=== PATIENT | female | born 1975 ===

== ENCOUNTER 2017-04-26 09:38 | Day surgery (SDC) | payer OTHER ==
[2017-04-26] VITALS (12 sets, daily range): BP systolic 98–113; BP diastolic 56–76
[~2017-04-26] VITALS: Ht 157.5 cm; Wt 81.6 kg
[~2017-04-26 09:38] MED LIST: ceFAZolin sod 1 GM in NS 55 ML IVPB ONE
[2017-04-26] MEDS ORDERED: NKM (10:40)
[2017-04-26] MEDS ORDERED: LR 1000ml 1,000 ML IVLG SCH (11:26)
--- NOTE | 2017-04-26 11:29 | Anethesia Preoperative Eval ---
Anesthesia Pre-op PMH/ROS General Date of Evaluation: Apr 26, 2017 Time of Evaluation: 12:01 Anesthesiologist: Cassie ASA Score: ASA 2 Mallampati Score Class I : Soft palate, uvula, fauces, pillars visible Class II: Soft palate, uvula, fauces visible Class III: Soft palate, base of uvula visible Class IV: Only hard plate visible Mallampati Classification: Class II Surgeon: Barney Diagnosis: Hypertrophic Turbinates Surgical Procedure: Septoplasty SMR Turbinates Anesthesia History: none Family History: no anesthesia problems Allergies: Coded Allergies: ERYTHROMYCIN BASE (Verified Allergy, Severe, swelling, 04/26/17) LATEX (Verified Allergy, Severe, Rash, 04/26/17) Medications: see eMAR Past Medical History Other: obesity - BMI 34 PSxH Narrative: LEEP, IUD Anesthesia Pre-op Phys. Exam Physician Exam Last Vital Signs Date Time Temp Pulse Resp B/P (MAP) Pulse Ox O2 Delivery O2 Flow Rate FiO2 04/26/17 10:25 97.4 56 18 110/58 100 Room Air 97.4 Constitutional: NAD Neurologic: CN 2-12 intact Cardiovascular: RRR Respiratory: CTA Gastrointestinal: S/NT/ND Airway Exam Mallampati Score: Class II MO: full ROM: limited Teeth: intact Anesthesia Pre-op A/P Labs Urine Test Test 04/26/17 09:50 Urine HCG, Qualitative Negative (NEGATIVE) Risk Assessment & Plan Assessment: ASA 2 Plan: GA, BIS, GlideScope Go Status Change Before Surgery: No Pre-Antibiotics Dru Gram Ancef IV Given Within 1 Hr of Incision: Yes Time Given: 12:16 Cr Matthews MD Apr 26, 2017 11:29
[2017-04-26] MEDS ORDERED: Hydromorphone 0.5mg/0.5ml inj IVP PRN (11:30)
[2017-04-26] MEDS ORDERED: Norco 5mg/325mg tab ORAL PRN (11:30)
[2017-04-26] MEDS ORDERED: fentaNYL 100 mcg/2 mL IV PRN (11:30)
[2017-04-26] MEDS ORDERED: LORazepam Inj 2mg/ml 1ml IV PRN (11:30)
[2017-04-26] MEDS ORDERED: HYDROcodone/Acetamin 7.5/325 tab ORAL PRN (11:30)
[2017-04-26] MEDS ORDERED: Bacitracin Oint 15gm Tube TOPIC ONE (11:30)
[2017-04-26] MEDS ORDERED: Ketorolac 30mg Inj IV PRN ×2 (11:30)
[2017-04-26] MEDS ORDERED: Cocaine HCl 4% 4ml vial TOPIC ONE (11:30)
[2017-04-26] MEDS ORDERED: DiphenhydrAMINE 50mg/ml Inj IVP PRN (11:30)
[2017-04-26] MEDS ORDERED: Kenalog-40 1ml Vial ONE (11:30)
[2017-04-26] MEDS ORDERED: Betadine 10% Oint 15gm TOPIC ONE (11:30)
[2017-04-26] MEDS ORDERED: Midazolam 2mg/2ml Inj IVP PRN (11:30)
[2017-04-26] MEDS ORDERED: Atropine Inj 1mg/10ml Syr IV PRN (11:30)
[2017-04-26] MEDS ORDERED: Labetalol 5mg/ml 20ml vial IV PRN (11:30)
[2017-04-26] MEDS ORDERED: oxyCODONE HCL/Acetaminophen 5/325mg ORAL PRN (11:30)
--- NOTE | 2017-04-26 11:30 | 48 Hour Post Anesthesia Eval ---
Post Anesthesia Evaluation Procedure: Septoplasty SMR Turbinates Date of Evaluation: Apr 26, 2017 Time of Evaluation: 16:58 Blood Pressure Systolic: 123 0: 78 Pulse Rate: 77 Respiratory Rate: 18 Temperature (Fahrenheit): 98.6 O2 Sat by Pulse Oximetry: 98 Airway: patent Nausea: No Vomiting: No Pain Intensity: 2 Hydration Status: adequate Cardiopulmonary Status: Stable Mental Status/LOC: patient returned to baseline Follow-up Care/Observations: 0 Post-Anesthesia Complications: 0 Follow-up care needed: ready to discharge Cr Matthews MD Apr 26, 2017 11:30
--- NOTE | 2017-04-26 11:30 | Immediate Post-Op Evaluation ---
Immediate Post-Op Evalulation Immediate Post-Op Evalulation Procedure: Septoplasty SMR Turbinates Date of Evaluation: Apr 26, 2017 Time of Evaluation: 14:55 IV Fluids: 550LR Blood Products: 0 Estimated Blood Loss: 50 Urinary Output: 0 Blood Pressure Systolic: 113 Blood Pressure Diastolic: 76 Pulse Rate: 83 Respiratory Rate: 16 O2 Sat by Pulse Oximetry: 96 Temperature (Fahrenheit): 100 Pain Score (1-10): 2 Nausea: No Vomiting: No Complications 0 Patient Status: awake, reacts, patent, extubated, none Hydration Status: adequate Dru Gram Ancef IV Given Within 1 Hr of Incision: Yes Time Given: 12:16 Cr Matthews MD Apr 26, 2017 11:30
[2017-04-26] MEDS ORDERED: Lidocaine 1% 10mg/ml/EPI 0.01mg/ml 50ml INJ ONE (11:31)
[2017-04-26] MEDS ORDERED: Oxymetazoline 0.05% Na Spray 30ml NASAL ONE (11:31)
--- NOTE | 2017-04-26 11:55 | Pre-Procedure Note/Attestation ---
Pre-Procedure Note/Attestation Complete Prior to Procedure Planned Procedure: right - septoplasty, bilateral inferior turbinectomies with itnramural coagualtion, resection of right intranasal tumor Procedure Narrative: nasal obstruction unresponsive to medication, right intranasal bleeding tumor Indications for Procedure Pre-Operative Diagnosis: septal deviation, bilateral hypertrophied inferior turbinates, right intranasl tumor Attestation I attest that I discussed the nature of the procedure; its benefits; risks and complications; and alternatives (and the risks and benefits of such alternatives ), prior to the procedure, with the patient (or the patient's legal tax compliance representative). I attest that, if there was a reasonable possibility of needing a blood transfusion, the patient (or the patient's legal tax compliance representative) was given the [place] [employer] standardized written summary, pursuant to the [place] Blood Safety Act ([place] Health and Safety Code # 1645, as amended). I attest that I re-evaluated the patient just prior to the surgery and that there has been no change in the patient's H&P, except as documented below: EFRAIN BHATTI Apr 26, 2017 11:55
[2017-04-26] MEDS ORDERED: Acetaminophen (Non formulary) 100 ML IV ONE (12:00)
[2017-04-26] MEDS ORDERED: NS Irrig 1000ml ONE (12:01)
[2017-04-26] MEDS ORDERED: Dexamethasone 4mg/ml vial ONE (12:01)
[2017-04-26] MEDS ORDERED: Propofol 200mg/20ml IV ONE (12:01)
[2017-04-26] MEDS ORDERED: LR 1000ml ONE (12:01)
[2017-04-26] MEDS ORDERED: Glycopyrrolate 0.2mg/ml 1ml Vial ONE (12:01)
[2017-04-26] MEDS ORDERED: Midazolam 2mg/2ml Inj ONE (12:01)
[2017-04-26] MEDS ORDERED: Lidocaine 1% MPF 10mg/ml 5ml ONE (12:01)
[2017-04-26] MEDS ORDERED: fentaNYL 100 mcg/2 mL IV ONE (12:01)
[2017-04-26] MEDS ORDERED: Zemuron 50mg/5ml Inj IV ONE (12:01)
[2017-04-26] MEDS ORDERED: Alfentanil 2ml Inj ONE (12:01)
[2017-04-26] MEDS ORDERED: Neostigmine 1mg/ml 10ml Inj ONE (12:01)
[2017-04-26] MEDS ORDERED: Sterile Water For Irrig 2000ml IRRIG ONE (12:01)
[2017-04-26] MEDS ORDERED: Betadine 4oz Bottle TOPIC ONE (12:21)
[2017-04-26] MEDS ORDERED: NS Irrig 1000ml IRRIG ONE (13:02)
--- NOTE | 2017-04-26 14:35 | Brief Operative Note ---
Immediate Post Operative Note Operative Note Pre-op Diagnosis: septal deviation, bilateral hypertrophied inferior turbinates, right intranasl tumor Procedure: septoplasty, bilateral inferior turbinectomies with intramural coagulationm, resection of right intranasal tumor Post-op Diagnosis: same as pre-op Surgeon: Christiano Bhatti M.D. Anesthesiologist: Miguel Angel Anesthesia: general Specimen: yes - right itranasal tumor Complications: none Condition: stable Fluids: ringers lactate Estimated Blood Loss: minimal Drains: none Packing: gelfoan and telfa Implant(s) used?: No CHRISTIANO BHATTI Apr 26, 2017 14:35
--- NOTE | 2017-04-27 05:15 | Operative Note - Dictated ---
DATE OF OPERATION: 04/26/2017 SURGEON: Christiano Corley M.D. ANESTHESIOLOGIST: Cr Matthews M.D. ANESTHESIA: General. PREOPERATIVE DIAGNOSES: 1. Septal deviation. 2. Bilateral hypertrophied inferior turbinates. 3. Right intranasal tumor. POSTOPERATIVE DIAGNOSES: 1. Septal deviation. 2. Bilateral hypertrophied inferior turbinates. 3. Right intranasal tumor. PROCEDURES: 1. Septoplasty. 2. Bilateral inferior turbinectomies with intramural coagulation. 3. Resection of right intranasal tumor. INDICATIONS FOR SURGERY: The patient is a 41-year-old female, who suffers from right-sided epistaxis and allergic rhinitis. She also complains of significant left greater than right nasal airway obstruction. She was placed on various intranasal allergy sprays and oral allergy medications including NasalCrom and Nasonex without any relief of her nasal obstruction. Her right-sided nosebleeds are becoming more frequent and more severe over the past three months. 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 Because of the patient's nasal airway obstruction and right intranasal tumor that bleeds frequently, the patient is now being brought to the operating room. FINDINGS AT SURGERY: Revealed an S-shaped septal deviation with the septum curving to the right and then to the left more superiorly. Both inferior turbinates were found to be significantly hypertrophied contributing to the nasal airway obstruction and the right inferior turbinate combined with the deviated septum obstructed a clear view of the right intranasal tumor. The right anterior tumor was found to be fixed to the underlying mucosa and was located just inferior to the middle turbinates attachment to the lateral nasal wall. The full extent of the tumor was only seen once the setum was straightened and the right inferior turbinate was reduced. PROCEDURE AND FINDINGS: The patient was brought to the operating room while premedicated and had received preoperative antibiotics. She was placed in supine position on the operating room table. After the patient underwent satisfactory endotracheal intubation, she was given IV sedation. The nasal cavity was then sprayed with 0.25% Isaac-Synephrine. Approximately 26 mL of 1% Xylocaine with 1:100,000 epinephrine were used to inject the nasal and septal frameworks. Less than 200 mg of cocaine were used on intranasal packing. It is of note, because of the patient's severe left septal deviation slightly greater than right, both nasal passages were very difficult to pack. The patient was then prepped and draped in the usual sterile fashion. After a suitable period of vasoconstriction, the packing was removed. Examination was as previously described. The right nasal tumor was found to be firmly attached to the lateral nasal wall just below the attachment of the middle turbinate to the nasal wall. The tumor appeared to be smoother and less angry but was blood red, with a little bloody ooze emanating from the more posterior aspect consistent with very friable nature of the tumor and frequent significant nosebleeds. With a #15 blade, the right inferior septal incision was then made and a right mucoperichondrial mucoperiosteal flap was then elevated. That portion of overriding obstructing perpendicular plate of the ethmoid and vomer bone were incised in strips, throughout its attachments and removed from the field of operation. Re- examination revealed a huge hypertrophied left septal bony deviation which was obstructing the anterior half of the left nasal passageway. Further examination also revealed a portion of the cartilaginous septum still to be obstructing the nasal passageway and visualization of the right intranasal tumor and so the cartilage was removed by incising the area of deviation, it from the opposite mucoperichondrium, and removing the incised septum from the field of operation. An obstructing right maxillary crest spur was then removed with mallet and chisel technique. The left large bony obstruction was freed from its bony attachments wth a ronguer and then removed from the field of operation. Re-examination still revealed the inferior turbinates to be obstructing the nasal passageway and the right inferior turbinate to be blocking good visualization of the nasal tumor. Bipolar intramural coagulation of both the inferior turbinates was performed. An incision was made in the undersurface of both inferior turbinates and mucosa stripped the underlying bone. The inferior turbinates were then outfractured and small piece of bone was removed from the pocket. Re-examination now revealed the patient to have a good bilateral nasal airway and I was able to see the entire tumor. The cautery was used to dissect the tumor from its attachment to the underlying mucosa. Once the attachments have been freed from the underlying mucosa and periosteum, the tumor was removed from the field of operation and sent to pathology. There were multiple bleeding sites throughout the surgical field and these were eventually controlled with cautery. Re-examination revealed no further evidence of bleeding along the area where the right intranasal tumor. All blood was then suctioned from the nose and nasopharynx area. Gelfoam-coated Betadine was placed over the area of the resection of the tumor. A 4-0 plain was used to close the septal incision as well as to splint the septum. Telfa coated with Betadine ointment was placed intranasally and held in place with sutures of 3-0 silk and the procedure was terminated. The patient tolerated the procedure well and left the operating room in satisfactory condition. Estimated blood loss was 50 mL. Sponge and needle counts were correct. Christiano Corley M.D. DR: THOMAS JOB#: [id number] CC: MALI
--- NOTE | 2017-04-30 01:16 | Operative Note - Dictated ---
DATE OF OPERATION: 04/26/2017 SURGEON: Christiano Corley M.D. ANESTHESIOLOGIST: Cr Matthews M.D. ANESTHESIA: General. PREOPERATIVE DIAGNOSES: 1. Septal deviation. 2. Bilateral hypertrophied inferior turbinates. 3. Right intranasal tumor. POSTOPERATIVE DIAGNOSES: 1. Septal deviation. 2. Bilateral hypertrophied inferior turbinates. 3. Right intranasal tumor. PROCEDURES: 1. Septoplasty. 2. Bilateral inferior turbinectomies with intramural coagulation. 3. Resection of right intranasal tumor. INDICATION FOR SURGERY: The patient is a 41-year-old, female, who suffers from right-sided epistaxis and allergic rhinitis. She also complains of significant left greater than right nasal obstruction, which has been unresponsive to various intranasal allergies sprays, oral allergy medications including Nasalcrom and Nasonex. Her right-sided nosebleeds were becoming more frequent and more severe over the past three months. The patient had an endoscopy performed in the office after the right nasal cavity was decongested, which revealed a cauliflower like very angry blood red sessile tumor fixed to the right nasal wall. Because of the patient's nasal airway obstruction and the right intranasal tumor that bleeds frequently, the patient is now being brought to the operating room. FINDINGS OF SURGERY: Revealed an S-shaped septal deviation of the septum curving to the right and then to the left more superiorly. Both inferior turbinates were found to be significantly hypertrophied contributing to the nasal airway obstruction and the right inferior turbinate combined with the deviated septum obstructed a clear view of the right intranasal tumor. The right nasal wall tumor was found to be fixed to the underlying mucosa and was located just inferior to the middle turbinate attachment to the lateral wall. The full extent of the tumor was only seen once the septum was straightened and the right inferior turbinate was reduced surgically. PROCEDURE AND FINDINGS: The patient was brought to the operating room while premedicated and having received preoperative antibiotics. She was placed in a supine position on the operating room table. After the patient underwent satisfactory endotracheal intubation, she was given IV sedation. The nasal cavity was then sprayed with 0.25% Isaac-Synephrine and the intranasal cavity was then sterilized with sterile Q-tips saturated with Betadine solution. Approximately 26 mL of 1% Xylocaine with 1: 100,000 epinephrine were used to inject the nasal and septal frameworks. Less than 200 mg of cocaine were used in nasal packing. It was of note because of the patient's severe left septal deviation, slightly greater than the right, both nasal passages are very difficult to pack. The patient then prepped and draped in usual sterile fashion. After a suitable period of vasoconstriction, the packing was removed. Examination was as previously described. Right nasal tumor was found to be firmly attached to the lateral nasal wall just below the attachment of the middle turbinate to the nasal wall. The tumor appeared to be smoother and less angry but was blood red and had a bloody ooze emanating from the more posterior aspect consistent with its friable nature and subsequent frequent significant nosebleeds. With packing having been removed, a #15 blade was used to make a right inferior septal incision and a right mucoperichondrial mucoperiosteal flap was eventually elevated. An incision was then made between the cartilage and bony septum and a left mucoperiosteal flap was elevated. That portion of overriding obstructing perpendicular plate of the ethmoid and vomer bone were incised in strips, throughout its attachments, and removed from the field of operation. Re-examination revealed a huge hypertrophied left septal bony deviation, which was obstructing the anterior half of the left nasal passageway. A portion of the cartilaginous septum was also found to be obstructing the nasal passage and obstructing a clear view of the nasal tumor. The cartilage was removed by incising the area of deviation it from the mucoperichondrium and removing it from the field of operation. An obstructing right maxillary crest spur was then removed with mallet and chisel technique. The large bony tumor was also freed from its remaining attachments from its bony attachments with a rongeur and then removed from the field of operation. Re-examination still revealed the inferior turbinates to be obstructing the nasal passageway and the right inferior turbinate to be blocking good visualization of the nasal tumor. Bipolar intramural coagulation of both the inferior turbinates was performed. An incision was made in the undersurface of both inferior turbinates and mucosa stripped the underlying bone. The inferior turbinates were then outfractured and a small piece of bone was removed from the pocket. Re-examination now revealed the patient to have a good bilateral nasal airway and I was able to view the entire tumor. Cautery was used to dissect the tumor from its attachment to the underlying periosteum and mucosa. The tumor was removed from the field of operation and sent to pathology. There were multiple bleeding sites beneath the resected tumor and these were eventually controlled with cautery. All blood was then suctioned from the nose and nasopharynx area. Gelfoam-coated with Betadine was placed over the area of the resection of the tumor. A 4-0 plain suture was used to close the septal incision as well as to splint the septum. Telfa coated with bacitracin ointment was placed intranasally and held in place with sutures of 3-0 silk and the procedure was terminated. The patient tolerated the procedure well and left the operating room in satisfactory condition. Estimated blood loss was 50 mL. Sponge and needle counts were correct. Christiano Corley M.D. DR: LIZZETTE JOB#: [id number] CC: MALI
== END 2017-04-26 17:20 | disposition home or self-care (01) ==
LOC: SUR 09:38
DX: J34.2 Deviated nasal septum (principal); J34.3 Hypertrophy of nasal turbinates; D48.1 Neoplasm of uncertain behavior of connective and other soft tissue; Z91.040 Latex allergy status; Z88.8 Allergy status to other drugs, medicaments and biological substances; Z90.49 Acquired absence of other specified parts of digestive tract
CPT/HCPCS: 30140; 30520; 30802; 81025; J1100; J1170; J1885; J2250; J2405; J2704; J2710; J3010; J3490; J7120; 94003; 94150; A4246